=== PATIENT | female | born 1950 ===

== ENCOUNTER 2020-10-23 05:51 | Day surgery (SDC) | payer OTHER ==
[~2020-10-23 05:51] MED LIST: AMLODIPINE BESYL5 MG PO; ZOCOR20 MG PO
== END 2020-10-23 18:35 | disposition home or self-care (01) ==
LOC: CIR.AMB 05:51
PROVIDERS: ATTEND Colon & Rectal Surgery
DX: N81.6 Rectocele (principal); Z20.822 Contact with and (suspected) exposure to COVID-19